=== PATIENT | female | born 1945 | race Caucasian/White ===

== ENCOUNTER → 2016-10-21 | Outpatient (CLI) | payer MEDICARE, OTHER | END | disposition home or self-care (01) | LOC: GMA 16:47 | PROVIDERS: ATTEND Nurse Practitioner Family | DX: N30.00 Acute cystitis without hematuria (principal) ==

== ENCOUNTER → 2016-12-17 | Outpatient (CLI) | payer MEDICARE, OTHER | END | disposition home or self-care (01) | LOC: GMAL 10:10 | PROVIDERS: ATTEND Family Medicine | DX: N39.0 Urinary tract infection, site not specified (principal) ==

== ENCOUNTER → 2017-05-19 | Outpatient (CLI) | payer MEDICARE, OTHER | END | disposition home or self-care (01) | LOC: GMAL 10:55 | PROVIDERS: ATTEND Family Medicine | DX: D51.3 Other dietary vitamin B12 deficiency anemia (principal); E55.9 Vitamin D deficiency, unspecified ==

== ENCOUNTER → 2017-11-25 | Outpatient (CLI) | payer MEDICARE, OTHER | LOC: SL 19:12 | PROVIDERS: ATTEND Family Medicine | DX: G47.10 Hypersomnia, unspecified (principal); G47.00 Insomnia, unspecified; R06.83 Snoring; I10 Essential (primary) hypertension ==

== ENCOUNTER 2019-02-07 16:30 | Inpatient (IN) | payer MEDICARE, OTHER ==
--- NOTE | 2019-02-07 16:33 | HP ---
SUPERVISING PHYSICIAN: Mich Polanco M.D. CHIEF COMPLAINT: Shortness of breath. HISTORY OF PRESENT ILLNESS: This is a 73 year-old female who has about a week history of fever, cough and congestion. She had some flu-like symptoms and ran a fever of 103 about 4 days ago. She states that she has not had a fever since that time, but has progressively gotten more short of breath. She was not going to see the doctor but her insisted, therefore she went to the doctor today where they did a chest x-ray. The chest x-ray showed a right lower lobe infiltrate and thus the patient was referred for admission directly from the primary care physician's office. At the time of examination the patient is alert and oriented. There is some mild dyspnea but she able to complete sentences. She does not have any active wheezing at this time. PAST MEDICAL HISTORY: 1. Hypertension. 2. Myocardial infarction. 3. Nephrolithiasis. 4. Depression. 5. Hyperlipidemia. 6. Gastroesophageal reflux disease. PAST SURGICAL HISTORY: 1. Appendectomy. 2. Cholecystectomy. 3. Hysterectomy. 4. Bladder surgery. 5. Bilateral cataract surgery. 6. Rectocele. 7. PTCA with stents times 9 in the past. 8. Colon surgery. 9. Back surgery. CURRENT MEDICATIONS: 1. Aspirin 81 mg p.o. daily. 2. Baclofen 10 mg p.o. t.i.d. 3. Plavix 75 mg p.o. daily. 4. Lexapro 20 mg p.o. daily. 5. Gabapentin 300 mg p.o. t.i.d. 6. Isosorbide dinitrate 30 mg p.o. daily. 7. Metoprolol succinate 50 mg p.o. daily. 8. Nitroglycerin 0.4 mg sublingual p.r.n. 9. Omeprazole 20 mg p.o. daily. 10. Simvastatin 10 mg p.o. daily. 11. Ambien 10 mg p.o. daily. ALLERGIES: CEPHAZOLIN, DIPHENHYDRAMINE, MORPHINE AND PENICILLIN. FAMILY HISTORY: SOCIAL HISTORY: REVIEW OF SYSTEMS: CONSTITUTIONAL: Positive for fever and chills. No recent weight loss or weight gain. HEENT: No headaches, vision changes, ear pain. She has had some nasal congestion but no throat pain. RESPIRATORY: Positive for cough. No hemoptysis. No pleuritic chest pain. CARDIOVASCULAR: No chest pain, palpitations or peripheral edema. GASTROINTESTINAL: No nausea, vomiting, diarrhea, constipation or abdominal pain. GENITOURINARY: No dysuria, frequency or flank pain. HEMATOLOGIC: No easy bruising or transfusion reaction. ENDOCRINE: No polydipsia, polyuria or polyphagia. No heat or cold intolerance. PHYSICAL EXAMINATION: VITAL SIGNS: Blood pressure 143/70, heart rate 70, respiratory rate 24, temperature 98.0, oxygen saturation 94%. GENERAL: Ms. Easley is a 73 year-old female who is in mild respiratory distress currently. CHEST: Lung with diminished bases but no active wheezing. No rales. CARDIOVASCULAR: The patient has a regular rate and rhythm. Normal S1 and S2. ABDOMEN: Soft, positive bowel sounds. GENITOURINARY: Exam is deferred. EXTREMITIES: Lower extremities with no significant edema, 2+ pulses. Capillary refill less than 2 seconds. NEUROLOGIC: The patient is alert and oriented. ASSESSMENT: 1. Right lower lobe pneumonia, community acquired. 2. History of chronic obstructive pulmonary disease. 3. Previous nicotine dependence. 4. Febrile illness secondary to #1. 5. History of coronary artery disease with no active problems at this time. 6. Hypertension. 7. Gastroesophageal reflux disease. PLAN: At this time the patient will be placed in the hospital for treatment of community acquired pneumonia. I have ordered blood cultures, sputum cultures as well as other lab work. Chest x-ray has already been done and shows a right lower lobe infiltrate. Will followup chest x-ray tomorrow. I have put her DVT and GI ulcer prophylaxis. I will monitor her cultures and deescalate when possible. [facility][id number] [facility]
[2019-02-07] MEDS ORDERED: SODIUM CHLORIDE 0.9% (FLUSH) 10 ML SYG IV PRN (18:00)
[2019-02-07] MEDS ORDERED: IV SET AND CAP CHANGE INJ INJ SCH (18:00)
[2019-02-07] MEDS ORDERED: ALBUTEROL SULFATE 2.5 MG/3 ML VIAL NEB PRN (18:00)
[2019-02-07] MEDS: LACTATED RINGERS 1,000 ML IVS PRN (18:23)
[2019-02-07] MEDS: levoFLOXacin 750MG IV 750 MG in PREMIX BAG 1 BAG IVPB SCH (18:24)
[2019-02-07] MEDS: ENOXAPARIN SODIUM 40 MG/0.4 ML SYG SUBCU SCH (18:24)
[2019-02-07] MEDS: IPRATROPIUM/ALBUTEROL 3 ML VIAL INH SCH ×2 (20:08→23:49)
[2019-02-07] MEDS: ZOLPIDEM TARTRATE 10 MG TAB PO SCH (21:14)
[2019-02-07] MEDS: BACLOFEN 10 MG TAB PO SCH (21:14)
[2019-02-07] MEDS: GABAPENTIN 300 MG CAP PO SCH (21:14)
[2019-02-08] MEDS: IPRATROPIUM/ALBUTEROL 3 ML VIAL INH SCH ×5 (04:02→21:06)
[2019-02-08] MEDS: OMEPRAZOLE CAP 20 MG CAP PO SCH (06:11)
--- NOTE | 2019-02-08 07:12 | RAD ---
EXAM: Two view chest. INDICATION: Pneumonia. COMPARISON: Chest x-ray: None. FINDINGS: Cardiac silhouette: Unremarkable. Kami: Unremarkable. Lobar consolidation: Right lower lobe Pleural effusion: None. Pneumothorax: None. Other: None. Bones: Spinal fusion hardware of the thoracolumbar spine is partially visualized. Other: None. IMPRESSION: Right lower lobe pneumonia. Electronically signed by: Jamie Lindsey MD 02/08/2019 7:10 AM CDT Workstation: [id number]
[2019-02-08] MEDS ORDERED: CLOPIDOGREL 75 MG TAB ONE (07:30)
[2019-02-08] MEDS: LACTATED RINGERS 1,000 ML IVS PRN ×2 (08:25→22:41)
[2019-02-08] MEDS: BACLOFEN 10 MG TAB PO SCH ×3 (08:26→20:50)
[2019-02-08] MEDS: ASPIRIN (CHEWABLE) 81 MG TAB PO SCH (08:26)
[2019-02-08] MEDS: GABAPENTIN 300 MG CAP PO SCH ×3 (08:28→20:50)
[2019-02-08] MEDS: ESCITALOPRAM 10 MG TAB PO SCH (08:28)
[2019-02-08] MEDS: METOPROLOL SUCCINATE XL 50 MG TAB PO SCH (08:28)
[2019-02-08] MEDS ORDERED: NITROGLYCERIN 0.4 MG 25 EA TAB SL PRN (08:59)
[2019-02-08] MEDS ORDERED: ISOSORBIDE DINITRATE 30 MG PO SCH (09:00)
[2019-02-08] MEDS ORDERED: CLOPIDOGREL BISULFATE 75 MG PO SCH (09:00)
[2019-02-08] MEDS ORDERED: SIMVASTATIN 10 MG TAB PO SCH (09:00)
[2019-02-08] MEDS ORDERED: OMEPRAZOLE CAP 20 MG CAP PO SCH (09:00)
--- NOTE | 2019-02-08 11:07 | PN ---
SUPERVISING PHYSICIAN: Mich Polanco MD DATE: 02/08/19 SUBJECTIVE: The patient states she feels a little bit better than she did yesterday when she came in. However, she is coughing quite a bit. The sputum is still green in color. She is currently doing incentive spirometry and doing fairly well with that. OBJECTIVE: VITAL SIGNS: Blood pressure 116/54. Heart rate 86. Respiratory rate 16. Temperature 98.9. Oxygen saturation 92% on room air. GENERAL: Ms. Easley is a 73-year-old female who is in no active distress currently. NEUROLOGIC: Alert and oriented. LUNGS: Scattered rhonchi bilaterally. I do not really appreciate any wheezing at this time. CARDIOVASCULAR: Regular rate and rhythm. Normal S1, S2. ABDOMEN: Soft. Positive bowel sounds. EXTREMITIES: Lower extremities with no edema. LABORATORY: White count 5.8, hemoglobin 12.0, hematocrit 36.2, platelet count 245. Chemistry shows sodium 139, potassium 3.4, chloride 106, CO2 23, BUN 9, creatinine 0.75, glucose 112, calcium 8.6. Chest x-ray still shows a right lower lobe infiltrate. ASSESSMENT: 1. Right lower lobe pneumonia, community acquired. 2. History of chronic obstructive pulmonary disease with possible mild exacerbation, but nothing requiring corticosteroids at this time. 3. Previous nicotine dependency. 4. Febrile illness secondary to #1, she has been afebrile for the last 24 hours at least. 5. History of coronary artery disease with no active issues at this time. 6. Hypertension. 7. Gastroesophageal reflux disease. PLAN: Lab-daley, she is doing okay. She has been afebrile for the last 24 hours, but she still sounds pretty bad on auscultation as well as coughing up quite a bit. I will continue her IV Levaquin and bronchial hygiene during the hospitalization. She did provide a sputum culture, so I will monitor that as well. Likely home in the next 48 hours or so if she continues to progress. [facility][id number] [facility]
[2019-02-08] MEDS: ISOSORBIDE DINITRATE 5 MG TAB PO SCH (11:14)
[2019-02-08] MEDS: levoFLOXacin 750MG IV 750 MG in PREMIX BAG 1 BAG IVPB SCH (17:12)
[2019-02-08] MEDS: ENOXAPARIN SODIUM 40 MG/0.4 ML SYG SUBCU SCH (17:12)
[2019-02-08] MEDS: ACETAMINOPHEN 325 MG TAB PO PRN (18:31)
[2019-02-08] MEDS: ZOLPIDEM TARTRATE 10 MG TAB PO SCH (20:50)
[2019-02-08] MEDS: SIMVASTATIN 10 MG TAB PO SCH (20:50)
[2019-02-09] MEDS: IPRATROPIUM/ALBUTEROL 3 ML VIAL INH SCH ×6 (00:32→20:47)
[2019-02-09] MEDS: OMEPRAZOLE CAP 20 MG CAP PO SCH (06:02)
[2019-02-09] MEDS: ISOSORBIDE DINITRATE 5 MG TAB PO SCH (08:49)
[2019-02-09] MEDS: METOPROLOL SUCCINATE XL 50 MG TAB PO SCH (08:50)
[2019-02-09] MEDS: ESCITALOPRAM 10 MG TAB PO SCH (08:50)
[2019-02-09] MEDS: BACLOFEN 10 MG TAB PO SCH ×3 (08:50→21:10)
[2019-02-09] MEDS: ASPIRIN (CHEWABLE) 81 MG TAB PO SCH (08:50)
[2019-02-09] MEDS: CLOPIDOGREL 75 MG TAB PO SCH (08:50)
[2019-02-09] MEDS: GABAPENTIN 300 MG CAP PO SCH ×3 (08:50→21:11)
[2019-02-09] MEDS ORDERED: POTASSIUM CHLORIDE 20 MEQ TAB PO ONE (11:36)
[2019-02-09] MEDS ORDERED: methylPREDNISolone SODIUM SUC 125 MG/2 ML VIAL IV ONE (13:25)
--- NOTE | 2019-02-09 13:41 | PN ---
SUPERVISING PHYSICIAN: Mich Polanco MD DATE: 02/09/19 SUBJECTIVE: The patient is sitting up in bed. She is much less short of breath than she was yesterday although she still has quite a "croupy cough." She does have some mild shortness of breath with exertion, but otherwise she feels like she is improved. She denies chest pain, nausea or vomiting. OBJECTIVE: VITAL SIGNS: Temperature 98.5. Heart rate 87. Blood pressure 115/59. Respiratory rate 18. O2 saturation 92% on 2-1/2 liters nasal cannula. RESPIRATORY: Scattered expiratory wheezes throughout the upper lung lugo, somewhat diminished at the bases. CARDIAC: Regular rate and rhythm. GASTROINTESTINAL: Abdomen is soft, nondistended, nontender. Bowel sounds are positive. NEUROLOGIC: Awake, alert and oriented times three. LABORATORY: Sputum culture is pending. Preliminary blood cultures show no growth. All other labs and films have been reviewed via the EMR. ASSESSMENT: 1. Right lower lobe pneumonia, community acquired. 2. Chronic obstructive pulmonary disease with mild exacerbation. She does have some wheezing today. 3. Previous nicotine dependency. 4. Febrile illness secondary to #1, she has been afebrile for the last 24 hours at least. 5. History of coronary artery disease with no active issues at this time. 6. Hypertension. 7. Gastroesophageal reflux disease. PLAN: We will continue present supportive care. She is having quite a bit of coughing and wheezing this morning, so I will give her some scheduled guaifenesin as well as one dose of IV steroids and then start her on a prednisone taper tomorrow. I have repeated her lab and chest x-ray for in the morning. She will continue with good pulmonary hygiene. Hopefully she will be ready for discharge tomorrow or the next day. We will continue to monitor the patient closely and follow as needed. #[id number] [facility]
[2019-02-09] MEDS: guaiFENesin ER TAB 600 MG TAB PO SCH ×2 (14:14→21:10)
[2019-02-09] MEDS: ENOXAPARIN SODIUM 40 MG/0.4 ML SYG SUBCU SCH (17:35)
[2019-02-09] MEDS: levoFLOXacin 750MG IV 750 MG in PREMIX BAG 1 BAG IVPB SCH (17:35)
[2019-02-09] MEDS: SIMVASTATIN 10 MG TAB PO SCH (21:10)
[2019-02-09] MEDS: ZOLPIDEM TARTRATE 10 MG TAB PO SCH (21:11)
[2019-02-10] MEDS: IPRATROPIUM/ALBUTEROL 3 ML VIAL INH SCH ×4 (00:06→12:55)
[2019-02-10] MEDS: ACETAMINOPHEN 325 MG TAB PO PRN (00:42)
[2019-02-10] MEDS: OMEPRAZOLE CAP 20 MG CAP PO SCH (06:16)
[2019-02-10 06:28] VITALS: TEMP 97.8
--- NOTE | 2019-02-10 06:54 | RAD ---
EXAM: XR Chest, 2 Views CLINICAL HISTORY: The patient is 73 years old and is Female; PNA TECHNIQUE: Frontal and lateral views of the chest. COMPARISON: Chest radiograph from 02/08/2019 FINDINGS: LUNGS: The left lung is clear. There has been interval decrease in density in the right lung base, suggesting improved pneumonia or atelectasis. PLEURAL SPACE: Unremarkable. No pneumothorax. HEART: No significant enlargement of the cardiac silhouette. MEDIASTINUM: Unremarkable. BONES/JOINTS: The bones are unchanged. IMPRESSION: Interval improvement in right basilar pneumonia or atelectasis. Electronically signed by: Eunice Nieto MD 02/10/2019 6:52 AM CDT
[2019-02-10] MEDS: ASPIRIN (CHEWABLE) 81 MG TAB PO SCH (08:50)
[2019-02-10] MEDS: ISOSORBIDE DINITRATE 5 MG TAB PO SCH (08:50)
[2019-02-10] MEDS: ESCITALOPRAM 10 MG TAB PO SCH (08:50)
[2019-02-10] MEDS: METOPROLOL SUCCINATE XL 50 MG TAB PO SCH (08:50)
[2019-02-10] MEDS: CLOPIDOGREL 75 MG TAB PO SCH (08:50)
[2019-02-10] MEDS: guaiFENesin ER TAB 600 MG TAB PO SCH (08:50)
[2019-02-10] MEDS: GABAPENTIN 300 MG CAP PO SCH ×2 (08:50→14:24)
[2019-02-10] MEDS: BACLOFEN 10 MG TAB PO SCH ×2 (08:50→14:24)
[2019-02-10] MEDS ORDERED: predniSONE 20 MG TAB PO SCH (09:00)
[2019-02-10 11:33] VITALS: BP 100/85
[2019-02-10] MEDS ORDERED: levoFLOXacin 500 MG TAB PO ONE (14:21)
[2019-02-10 14:24] VITALS: O2SAT 95
[2019-02-10] MEDS ORDERED: levoFLOXacin 750MG IV 750 MG in PREMIX BAG 1 BAG IVPB SCH (14:30)
--- NOTE | 2019-02-10 19:21 | DS ---
SUPERVISING PHYSICIAN: Mich Polanco M.D. DISCHARGE DIAGNOSIS: 1. Right lower lobe pneumonia, community acquired. 2. Chronic obstructive pulmonary disease with mild exacerbation. 3. Previous nicotine dependency. 4. Febrile illness secondary to #1. She has been afebrile for the last 24 hours. 5. History of coronary artery disease with no active issues at this time. 6. Hypertension. 7. Gastroesophageal reflux disease. HISTORY OF PRESENT ILLNESS: This is a 73 year-old female who has about a week history of fever, cough and congestion. She also had some flu-like symptoms and ran a fever of 103 about 4 days prior to admission. There was no fever since, but had progressively gotten more short of breath. Her insisted that she see her primary care provider where he did a chest x-ray. The chest x-ray showed a right lower lobe infiltrate and thus the patient was referred for admission directly from her primary care physician's office, Dr. Drew. The patient was admitted to the Medical/Surgical floor. She was alert and oriented. There was some dyspnea but she was able to complete her sentences. Her initial vital signs were temperature 98 with heart rate 70, blood pressure 143/70, respiratory rate 24, O2 sat 94%. Her oxygen went down to the upper 80s and she had to be placed on 3 liters of nasal cannula that brought it up to the mid 90s. Blood cultures were drawn as well as a sputum culture. CBC was unremarkable. Electrolytes were within normal limits with the exception of her potassium was slightly low at 3.3. Serum osmolality was 272.3, lactic acid was 0.8. She was started on the pneumonia protocol and was treated for community acquired pneumonia. She was also given DVT prophylaxis and ulcer prophylaxis. She has been started on Levaquin as well as scheduled and p.r.n. nebulizer treatments and aggressive pulmonary hygiene. Home medications were restarted. She had progressively improved over the next 2 days. She no longer had any fever. Initially she was not given any steroids, but after 48 hours she had some expiratory wheezes and was given a dose of IV Solu-Medrol. The wheezing subsided and she was transitioned to oral prednisone. Today, she will be discharged home in stable condition. LABORATORY: CBC remained stable throughout her stay. WBCs this morning were slightly low at 4.3. After supplementation, her potassium came up to 3.6, but otherwise her electrolytes were within normal limits. Preliminary blood cultures showed no growth. Preliminary sputum culture is still pending. Flu swab was negative. RADIOLOGY: Followup chest x-ray today showed interval improvement in right basilar pneumonia or atelectasis. DISCHARGE PLAN: The patient will be discharged home in stable condition. She is to resume her previous diet and increase her activity as tolerated. She is to call Dr. Drew' office tomorrow or Thursday to get a hospital followup appointment within the next 1 to 2 weeks. She will continue her previous home medications. I have added a prednisone taper as well as Levaquin for 6 additional days. She will not have to start her medications until tomorrow as she received her prednisone today and her Levaquin today. She also was out of Albuterol so I sent her in an Albuterol nebulizer prescription. She wears home O2 and I encouraged her to wear it most of the time at home, especially at night. She could see Dr. Drew and they could decide what her oxygen needs were at that time. Her blood culture and sputum cultures are still pending, so it may be helpful to review it at her followup appointment. She is to return to the hospital or followup with Dr. Drew' office for any problems or complications. DISCHARGE MEDICATIONS: 1. Zolpidem. 2. Omeprazole. 3. Nitroglycerin. 4. Metoprolol. 5. Isosorbide. 6. Lexapro. 7. Gabapentin. 8. Plavix. 9. Baclofen. 10. Aspirin. 11. Simvastatin. 12. Guaifenesin. 13. Levofloxacin. 14. Prednisone. 15. Albuterol [facility]. [facility][id number] [facility]
== END 2019-02-10 15:30 | disposition home or self-care (01) | DRG 194 ==
LOC: MS 16:30
PROVIDERS: ADMIT Nurse Practitioner; ATTEND Nurse Practitioner Acute Care
DX: J18.1 Lobar pneumonia, unspecified organism (principal); J44.0 Chronic obstructive pulmonary disease with (acute) lower respiratory infection; J44.1 Chronic obstructive pulmonary disease with (acute) exacerbation; I10 Essential (primary) hypertension; K21.9 Gastro-esophageal reflux disease without esophagitis; I25.10 Atherosclerotic heart disease of native coronary artery without angina pectoris; F32.9 Major depressive disorder, single episode, unspecified; E78.5 Hyperlipidemia, unspecified; I25.2 Old myocardial infarction; Z87.891 Personal history of nicotine dependence; Z90.49 Acquired absence of other specified parts of digestive tract; Z95.5 Presence of coronary angioplasty implant and graft; Z79.82 Long term (current) use of aspirin; Z79.02 Long term (current) use of antithrombotics/antiplatelets; Z88.0 Allergy status to penicillin; Z88.5 Allergy status to narcotic agent; Z88.8 Allergy status to other drugs, medicaments and biological substances; Z79.899 Other long term (current) drug therapy